=== PATIENT | female | born 1995 | race Caucasian/White ===

== ENCOUNTER 2019-04-15 20:11 | Emergency (ER) | payer OTHER, SELFPAY ==
[2019-04-15 20:12] VITALS: BP 138/78; PULSE 72; RESP 18; TEMP 37.1; O2SAT 98; BMI 29.5
--- NOTE | 2019-04-15 21:20 | US_ITS ---
HISTORY: Pelvic pain. LMP 03/18/2019 64 images. Positive beta hCG of 70. Findings: Endovaginal imaging only. The uterus measures 7 x 4 x 4.8 cm. The endometrial stripe is homogeneous at 16 mm. Myometrium is homogeneous and demonstrates flow on color Doppler imaging. No gestational sac is perceived. A thin strip of fluid is suggested within the lower uterine segment extending down to the internal cervical os. The right ovary measures 1.3 x 2.2 x 1.4 cm. Color and pulse-wave Doppler imaging suggest arterial flow to right ovarian parenchyma. The left ovary measures 1.6 x 0.7 x 1.2 cm. Color and pulse Doppler imaging suggest arterial flow to left ovarian parenchyma. Anterior lower uterine segment scar from previous is present. US/Transvaginal w/Preg US IMPRESSION: No IUP seen. Small sliver of fluid within the endometrial canal is elongated and does not appear to be a gestational sac. There is no decidual reaction. This may be blood. at [id number] Reported and signed by: Tristen Moss MD Electronically Signed: Tristen Moss MD at 0:07 EST Tel , Service support ,
[2019-04-15 21:45] LABS: Red Blood Cells-Urine 0 SEEN /hpf (0-5)
[2019-04-15 21:45] LABS: Absolute Lymphocyte Count 3.17 X10^3/uL (0.83-4.51); Absolute Neutrophil Count 8.6 X10^3/uL (2.0-7.7); Basophil# 0.06 X10^3/uL; Basophil% 0.5 % (0-1); Eosinophil# 0.12 X10^3/uL; Eosinophils% 0.9 % (0-5); Hematocrit 40.1 % (37-47); Lymphocyte # 3.17 X10^3/ul (4.0); Lymphocyte % 24.7 % (19-41); Mean Corp Hgb Conc 32.4 g/dL (32-36); Mean Corpuscular Hgb 27.7 pg (27.0-32.0); Mean Corpuscular Volume 85.3 fL (81-99); Mean Platelet Vol. 10.8 fl (6.2-12.0); Monocyte% 6.2 % (0-10); NRBC Flagged by Analyzer 0 % (0-5); Neutrophil # 8.63 X10^3/uL (2.7-7.7); Neutrophil % 67.4 % (47-70); Platelet Count 362 K/mm3 (150-450); RBC Distribution Width SD 40.5 fl (35.1-43.9); White Blood Count 12.8 K/mm3 (4.4-11.0)
[2019-04-15 21:49] LABS: Color, Urine Yellow (Yellow); Glucose, Dipstick Normal (Normal); Ketone-Dipstick 5 mg/dl (Negative); Leukocyte Esterase-Dipstick 25 /ul (Negative); Nitrite-Dipstick Negative (Negative); Occult Blood-Urine Negative /ul (Negative); Protein-Dipstick 15 mg/dl (Negative); Specific Gravity, Urine 1.015 (1.002-1.030); Urine Bilirubin Dipstick Negative (Negative); Urine Clarity Clear (Clear); Urine Urobilinogen 1 mg/dl (Normal); Urine pH 6.5 (5.0 - 8.0)
[2019-04-15 22:02] LABS: ALB/GLOB Ratio 0.9 RATIO (0.9-2.4); AST(SGOT) 14 U/L (15-37); Alanine Aminotransfer ALT/SGPT 26 U/L (13-56); Albumin, Serum 3.5 g/dL (3.2-5.0); Alkaline Phosphatase 99 U/L (45-117); Anion Gap 4 (5-15); BUN 8 mg/dL (7-18); BUN/Creat Ratio 12.8 RATIO (10-20); Calcium,Total 9.1 mg/dL (8.5-10.1); Chloride 112 mmol/L (98-107); Creatinine, Serum 0.62 mg/dL (0.55-1.02); EST Glomerular Filtration Rate 124 mL/min (>60); Est Glom Filt Rate - Afr Amer 150 mL/min (>60); Estimated Creatinine Clearance 120.82 ml/min; Glucose 103 mg/dL (74-106); Potassium 3.7 mmol/L (3.5-5.1); Protein, Total 7.5 g/dL (6.4-8.2); Sodium Level 140 mmol/L (136-145)
[2019-04-15 22:04] LABS: hCG Titer Quant., Serum 70 mIU/mL (1-3)
[2019-04-15 22:05] LABS: Bacteria RARE /hpf (None Seen); Mucous, Urine 1+ /hpf (<or=2+); Squamous Epithelial Cells - UA 0-5 SEEN /hpf (5-10); White Blood Cells 0-5 SEEN /hpf (0-5)
[2019-04-15 22:12] VITALS: BP 134/76; PULSE 86; RESP 15; O2SAT 97
--- NOTE | 2019-04-15 22:35 | ED.DCSUM_ITS ---
- ER Visit Summary Date of Service: 04/15/19 Chief Complaint: Pelvic pain History of Present Illness: The patient is a 23 F who presents with pelvic pain abdominal pain that began yesterday. Patient describes it as cramping. Patient states she is approximately 4 weeks . Patient states her pain is diffuse across her abdomen. Patient states nothing makes it better or worse. Patient admits to nausea but denies any vomiting. Patient denies any diarrhea, melena, or hematochezia. Patient denies any dysuria or hematuria. Patient denies any vaginal bleeding or discharge. Patient states her last menstrual period was 03/18/2019. Patient denies any fevers but admits to subjective chills. Patient states the pain does radiate into her back. Physical Examination: Vital signs are stable. Patient is afebrile. Patient is in no acute distress. Oral mucosa is pink and moist. Neck is supple. Trachea is midline. There is no JVD noted. Heart was regular rate and rhythm. Lungs are clear and equal bilaterally. Abdomen is soft. Bowel sounds are normal. There is mild diffuse tenderness. There is no rebound or guarding noted. Skin is warm dry. Cranial nerves II through XII are intact. There are no focal motor or sensory deficits noted. Extremities are intact. There is no calf tenderness or edema. Test Results: CBC shows a mild leukocytosis of 12.8. Comprehensive metabolic profile was normal. Urinalysis does not show any evidence of urinary tract infection. Quantitative hCG was 70. Pelvic ultrasound was obtained and is pending. Emergency Department Course and Treatment: Patient had no further cramping here in the emergency department. Patient is resting comfortably. Care of the patient was turned over to the oncoming physician pending ultrasound results. Disposition: Care of the patient was turned over to the oncoming patient will likely be discharged home Impression: Threatened miscarriage This note was generated with [employer] software. It may contain incorrect words, spelling, and punctuation that were not noted in review of the chart prior to signing ED Disposition - Plan for ED Patient: Disposition: Home or Assisted Living Diagnosis: Threatened miscarriage Instructions: POSSIBLE MISCARRIAGE (Threatened ) Referrals: Washington Noyola MD [Primary Care Provider] - 3-5 Days
[2019-04-16 00:47] VITALS: BP 136/87; PULSE 86; RESP 17; O2SAT 99
== END 2019-04-16 00:52 | disposition home or self-care (01) ==
PROVIDERS: Emergency Provider Emergency Medicine; PCP Family Medicine
DX: O20.0 Threatened abortion (principal); Z3A.01 Less than 8 weeks gestation of pregnancy
CPT/HCPCS: 76817; 80053; 81001; 84702; 85025; 99283; A4216

== ENCOUNTER 2019-07-23 22:16 | Emergency (ER) | payer OTHER, SELFPAY ==
[2019-07-23 22:17] VITALS: BP 113/62; PULSE 106; RESP 15; TEMP 36.5; O2SAT 96; BMI 30.9
--- NOTE | 2019-07-23 22:48 | ED.VIS.GEN ---
History of Present Illness Chief Complaint: Lower Extremity Injury Informant: Patient Narrative: Patient has injury to her left foot. She stated that a cot at work here in the hospital came down on her foot. She is having tenderness but had happened approximately an hour ago. No home treatment hurts with movement. Relieved with rest. No previous injury. She is in her first trimester . Denies any injury to her abdomen. Past Medical History - Allergies and Home Meds Allergies/Adverse Reactions: Allergies amoxicillin Allergy (Verified 07/23/19 22:21) Aminata Primary Care Physician: Washington Noyola MD [Primary Care Provider] - Prior records reviewed: Yes Past Medical History: - - Reviewed Surgical History: noncontributory Lives: With Family Smoking Status: Never smoker Alcohol: None Drugs: None Review of Systems General: Denies: Chills, Fever, Sweats Eyes: Denies: Visual changes - bilaterally, Diplopia ENT: Denies: Rhinorrhea, Sore throat Cardiovascular: Denies: Chest pain, Palpitations Respiratory: Denies: Dyspnea, Cough, Dyspnea on exertion Gastrointestinal: Denies: Abdominal pain, Nausea, Vomiting, Diarrhea, Melena, Hematochezia Genitourinary: Denies: Dysuria, Hematuria, Frequency Musculoskeletal: Reports: Extremity Pain. Denies: Back pain Skin: Denies: Rash, Wounds Neurological: Denies: Headache, Weakness, Numbness Physical Exam Vital Signs/Narrative: Vital Signs Temp Pulse Resp BP Pulse Ox 07/23/19 22:17 97.7 F L 106 H 15 113/62 96 General: Well nourished, Well developed, No Acute Distress Head: Normocephalic, Atraumatic Eyes: Perrl, EOMI ENT: Moist mucous membranes, No rhinorrhea Neck: Supple, Nontender Cardiovascular: Regular rate, Regular rhythm, No murmurs Respiratory: No distress, CTA bilaterally, Chest nontender Abdomen: Soft, Nontender, Nondistended, Normal bowel sounds Back: Nontender, Normal Inspection Extremities: No edema, Tenderness - Tenderness in the left metatarsals diffusely. Normal range of motion. No swelling or deformity or bruising. Mild tenderness in the left great toe.. Negative for: Nontender Skin: Normal color, No rash Neurological: Alert, Oriented x3, Cranial nerves II-XII grossly intact, Normal Strength, Normal Sensation Psychological: Normal affect, Normal Mood Diagnostic/Tx/Re-eval - Medical Decision Making Given Tylenol. X-ray of the left foot obtained. X-ray negative. No evidence of fracture. Patient given Ted wrap. She can follow-up as an outpatient with [facility]. At this time I feel she has a contusion ED Disposition - Plan for ED Patient: Disposition: Home or Assisted Living Diagnosis: Contusion of foot, left Instructions: ED FOOT CONTUSION Referrals: [facility] [GROUP OF PHYSICIANS] -
--- NOTE | 2019-07-23 22:50 | RAD_ITS ---
STUDY: X-RAY - LEFT FOOT CLINICAL: Female, 24 years old. Pain after bed fell on foot. TECHNIQUE: 3 view(s) of the foot. COMPARISON: None. FINDINGS: Normal talus, calcaneus, and tarsal bones. Normal visualized subtalar, talonavicular, calcaneocuboid, tarsal and tarsometatarsal articulations. Normal metatarsi. Normal metatarsophalangeal joint of the great toe. Normal tibial and fibular sesamoid bones. Normal interphalangeal joint of the great toe. Normal phalanges of the great toe. Normal second through fifth metatarsophalangeal joints. Normal interphalangeal joints and phalanges of the lesser toes. The soft tissue structures are unremarkable. RAD/Foot min 3 Views IMPRESSION: Normal x-ray examination of the foot. Electronically Signed: Tahir Garcia MD at 23:39 EDT , Service support ,
[2019-07-23] MEDS: Acetaminophen 325 MG Tablet 650 MG PO (23:05)
== END 2019-07-23 23:38 | disposition home or self-care (01) ==
LOC: ED 23:19
PROVIDERS: Emergency Provider Emergency Medicine; PCP Family Medicine
DX: S90.32XA Contusion of left foot, initial encounter (principal); X58.XXXA Exposure to other specified factors, initial encounter; Y92.239 Unspecified place in hospital as the place of occurrence of the external cause
CPT/HCPCS: 73630; 99282

== ENCOUNTER 2019-08-20 20:34 | Observation (INO) | payer OTHER, SELFPAY ==
[2019-08-20 20:37] VITALS: BP 130/107; PULSE 80; RESP 16; TEMP 37.1; O2SAT 97; BMI 29.8
[2019-08-20 20:43] VITALS: O2SAT 98
[2019-08-20 20:55] VITALS: BP 113/52; PULSE 88; RESP 16; O2SAT 98
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
[2019-08-20 21:01] LABS: Bedside Glucose 70 mg/dL (70-110)
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
[2019-08-20 21:11] LABS: Squamous Epithelial Cells - UA 0 SEEN /hpf (5-10)
[2019-08-20 21:18] LABS: Absolute Lymphocyte Count 3.33 X10^3/uL (0.83-4.51); Absolute Neutrophil Count 8.6 X10^3/uL (2.0-7.7); Basophil# 0.04 X10^3/uL; Basophil% 0.3 % (0-1); Eosinophil# 0.14 X10^3/uL; Eosinophils% 1.1 % (0-5); Hematocrit 36.9 % (37-47); Hemoglobin 12.3 g/dL (12.0-15.0); Lymphocyte # 3.33 X10^3/ul (4.0); Lymphocyte % 25.8 % (19-41); Mean Corp Hgb Conc 33.3 g/dL (32-36); Mean Corpuscular Hgb 28.6 pg (27.0-32.0); Mean Corpuscular Volume 85.8 fL (81-99); Mean Platelet Vol. 11.2 fl (6.2-12.0); Monocyte% 6.2 % (0-10); NRBC Flagged by Analyzer 0 % (0-5); Neutrophil # 8.56 X10^3/uL (2.7-7.7); Neutrophil % 66.1 % (47-70); Platelet Count 305 K/mm3 (150-450); RBC Distribution Width CV 12.9 % (11.6-14.6); RBC Distribution Width SD 39.8 fl (35.1-43.9); White Blood Count 12.9 K/mm3 (4.4-11.0)
[2019-08-20 21:20] LABS: Color, Urine Yellow (Yellow); Glucose, Dipstick Normal (Normal); Ketone-Dipstick 15 mg/dl (Negative); Leukocyte Esterase-Dipstick 25 /ul (Negative); Nitrite-Dipstick Negative (Negative); Occult Blood-Urine Negative /ul (Negative); Protein-Dipstick 15 mg/dl (Negative); Urine Bilirubin Dipstick Negative (Negative); Urine Clarity Clear (Clear); Urine Urobilinogen 1 mg/dl (Normal); Urine pH 6.5 (5.0 - 8.0)
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
[2019-08-20 21:30] LABS: Red Blood Cells-Urine 0-5 SEEN /hpf (0-5); White Blood Cells 0-5 SEEN /hpf (0-5)
[2019-08-20 21:31] LABS: Bacteria 1+ /hpf (None Seen); Mucous, Urine 2+ /hpf (<or=2+)
[2019-08-20 21:36] LABS: International Normalized Ratio 1.1
[2019-08-20 21:37] LABS: Partial Thromboplast Time 24.7 Seconds (24.1-36.2)
[2019-08-20 21:41] LABS: ALB/GLOB Ratio 0.6 RATIO (0.9-2.4); AST(SGOT) 39 U/L (15-37); Alanine Aminotransfer ALT/SGPT 17 U/L (13-56); Albumin, Serum 2.7 g/dL (3.2-5.0); Alkaline Phosphatase 96 U/L (45-117); Anion Gap 9 (5-15); BUN 5 mg/dL (7-18); BUN/Creat Ratio 11.9 RATIO (10-20); Calcium,Total 8.7 mg/dL (8.5-10.1); Chloride 109 mmol/L (98-107); Creatinine, Serum 0.42 mg/dL (0.55-1.02); EST Glomerular Filtration Rate 194 mL/min (>60); Est Glom Filt Rate - Afr Amer 235 mL/min (>60); Estimated Creatinine Clearance 176.82 ml/min; Globulin 4.6 g/dL (2.2-4.2); Glucose 79 mg/dL (74-106); Potassium 4.5 mmol/L (3.5-5.1); Protein, Total 7.3 g/dL (6.4-8.2); Sodium Level 138 mmol/L (136-145)
[2019-08-20 21:52] LABS: Fibrinogen 444 mg/dl (203-444)
[2019-08-20 22:11] VITALS: BP 119/78; PULSE 75; RESP 18; TEMP 36.8; O2SAT 98
[2019-08-20 22:30] VITALS: BMI 29.5
[2019-08-20 22:42] VITALS: TEMP 37; O2SAT 98
[2019-08-20 22:43] VITALS: BP 107/54; PULSE 77
[2019-08-20] MEDS: Acetaminophen 500 MG Tablet 1000 MG PO (23:05)
[2019-08-21 02:54] VITALS: BP 94/54; PULSE 78; TEMP 36.2; O2SAT 98
[2019-08-21 03:06] LABS: Bedside Glucose 77 mg/dL (70-110)
[2019-08-21 05:44] LABS: Absolute Neutrophil Count 5.9 X10^3/uL (2.0-7.7); Basophil# 0.04 X10^3/uL; Basophil% 0.4 % (0-1); Eosinophil# 0.13 X10^3/uL; Eosinophils% 1.2 % (0-5); Hematocrit 34.1 % (37-47); Lymphocyte % 35.2 % (19-41); Mean Corp Hgb Conc 32.3 g/dL (32-36); Mean Corpuscular Hgb 28.2 pg (27.0-32.0); Mean Corpuscular Volume 87.4 fL (81-99); Mean Platelet Vol. 10.7 fl (6.2-12.0); Monocyte# 0.68 X10^3/uL; Monocyte% 6.5 % (0-10); NRBC Flagged by Analyzer 0 % (0-5); Neutrophil # 5.92 X10^3/uL (2.7-7.7); Neutrophil % 56.4 % (47-70); Platelet Count 281 K/mm3 (150-450); RBC Distribution Width CV 13.2 % (11.6-14.6); RBC Distribution Width SD 41.4 fl (35.1-43.9); White Blood Count 10.5 K/mm3 (4.4-11.0)
[2019-08-21 06:58] LABS: Fibrinogen 401 mg/dl (203-444)
[2019-08-21 07:15] VITALS: BP 114/56; PULSE 69; TEMP 36.6
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
[2019-08-21 08:59] LABS: Protein, Urine (Random) 31.8 mg/dL (<11.9); Protein:Creat Ratio 114 mg/g CRE (0-200)
[2019-08-21 09:01] LABS: ALB/GLOB Ratio 0.6 RATIO (0.9-2.4); AST(SGOT) 12 U/L (15-37); Alanine Aminotransfer ALT/SGPT 14 U/L (13-56); Albumin, Serum 2.5 g/dL (3.2-5.0); Alkaline Phosphatase 93 U/L (45-117); Anion Gap 8 (5-15); BUN 7 mg/dL (7-18); BUN/Creat Ratio 16.5 RATIO (10-20); Calcium,Total 8.7 mg/dL (8.5-10.1); Chloride 109 mmol/L (98-107); Creatinine, Serum 0.42 mg/dL (0.55-1.02); EST Glomerular Filtration Rate 193 mL/min (>60); Est Glom Filt Rate - Afr Amer 233 mL/min (>60); Estimated Creatinine Clearance 176.82 ml/min; Globulin 4.1 g/dL (2.2-4.2); Glucose 84 mg/dL (74-106); Potassium 3.6 mmol/L (3.5-5.1); Protein, Total 6.6 g/dL (6.4-8.2); Sodium Level 139 mmol/L (136-145)
[2019-08-21 14:46] LABS: Bedside Glucose 86 mg/dL (70-110)
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
== END 2019-08-21 09:50 | disposition home or self-care (01) ==
LOC: ED 20:44 → WP 22:03
PROVIDERS: Admitting Provider Obstetrics & Gynecology; Emergency Provider Emergency Medicine; PCP Family Medicine; Referring Provider Obstetrics & Gynecology; Visit Provider Obstetrics & Gynecology
DX: O26.892 Other specified pregnancy related conditions, second trimester (principal); Z3A.22 22 weeks gestation of pregnancy; R55 Syncope and collapse; S39.91XA Unspecified injury of abdomen, initial encounter; V48.5XXA Car driver injured in noncollision transport accident in traffic accident, initial encounter; Y93.89 Activity, other specified; Y92.89 Other specified places as the place of occurrence of the external cause; R51 Headache; S39.012A Strain of muscle, fascia and tendon of lower back, initial encounter; E16.2 Hypoglycemia, unspecified
CPT/HCPCS: 59050; 70450; 72020; 76816; 80053; 81001; 82570; 82962; 84156; 85025; 85384; 85610; 85730; 86900; 86901; 87086; 87088; 99218; 99285; A4216; G0378

== ENCOUNTER 2021-04-17 06:36 | Emergency (ER) | payer MEDICAID, SELFPAY ==
[2021-04-17 06:37] VITALS: BP 115/60; PULSE 78; RESP 16; TEMP 36.6; O2SAT 96; BMI 32.5
[2021-04-17 06:40] VITALS: BP 115/60; PULSE 78; RESP 16; TEMP 36.6; O2SAT 96
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
[2021-04-17 06:51] LABS: Mucous, Urine 0 SEEN /hpf (<or=2+); Red Blood Cells-Urine 0 SEEN /hpf (0-5)
[2021-04-17 06:54] LABS: Glucose, Dipstick Normal (Normal); Ketone-Dipstick Negative (Negative); Leukocyte Esterase-Dipstick Negative /ul (Negative); Nitrite-Dipstick Positive (Negative); Occult Blood-Urine 150 /ul (Negative); Protein-Dipstick 30 mg/dl (Negative); Urine Clarity Clear (Clear); Urine Urobilinogen 12 mg/dl (Normal)
[2021-04-17 06:56] LABS: Color, Urine SEE COMMENT BELOW (Yellow); Urine Bilirubin Dipstick 6 mg/dL (Negative)
[2021-04-17 06:57] LABS: Internal QC Validated? YES +Cl - CLEAR BKGD; Pregnancy, Urine Negative Negative
[2021-04-17 07:00] LABS: Amorphous Sediment RARE; Bacteria 2+ /hpf (None Seen); White Blood Cells 0-5 SEEN /hpf (0-5)
[2021-04-17 07:01] LABS: Squamous Epithelial Cells - UA 0-5 SEEN /hpf (5-10)
[2021-04-17] MEDS: Cephalexin 250 MG Capsule 500 MG PO (07:21)
== END 2021-04-17 07:22 | disposition home or self-care (01) ==
PROVIDERS: Emergency Provider Emergency Medicine; PCP Family Medicine; Visit Provider Emergency Medicine
DX: N30.90 Cystitis, unspecified without hematuria (principal)
CPT/HCPCS: 81001; 81025; 99281; 99283